=== PATIENT | female | born 1990 | race Caucasian/White ===

== ENCOUNTER 2017-08-16 08:00 | Outpatient (CLI) | payer OTHER | END 2017-08-16 08:01 | disposition home or self-care (01) | LOC: LAB.R 08:00 | PROVIDERS: ATTEND Obstetrics & Gynecology | DX: Z11.3 Encounter for screening for infections with a predominantly sexual mode of transmission (principal) | CPT/HCPCS: 87480; 87491; 87510; 87591; 87660 ==